=== PATIENT | male | born 1970 | race Caucasian/White ===

== ENCOUNTER 2019-06-15 13:27 | Inpatient (IN) | payer OTHER ==
[~2019-06-15] VITALS: Ht 175.3 cm; Wt 90.9 kg
--- NOTE | ~2019-06-15 | HEMODYNAMI ---
PATIENT:FRANCISCO PÉREZ MEDICAL RECORD: [id number] : 72 LOCATION:[facility] D.[address] [facility]# [id number] ADMISSION DATE: 06/15/19 Generatedon:06/16/201913:05 Patient name: FRANCISCO PÉREZ Patient #: [id number] : 1970 Date of study: 06/16/2019 Page: Of Hemodynamic Procedure Report Patient Data Patient Demographics Procedure consent was obtained First Name: FRANCISCO Gender: Male Last Name: BETO : 1970 Patient #: [id number] Age: 48 year(s) Race: SSN: [id number] Additional ID: [id number] Contact details Address: [address] [place] [address] [place] State: [facility] Zip code: [address] Admission Admission Data Admission Date: 06/15/2019 Admission Time: 14:34 Arrival Date: 06/15/2019 Arrival Time: 14:34 Admit Source: Other Insurance Payor: Private Room #: D.2125 health insurance [facility] #: [id number] Height (in.): 68.9 BSA: 2.11 (m2) Height (cm.): 175 BMI: 31.35 (kg/m2) Weight (lbs.): 211.64 Weight (kg.): 96 Lab Results Lab Result Date: 06/16/2019 Lab Result Time: 0:00 Biochemistry Name Units Result Min Max BUN mg/dl 14 --(--*-)-- 7 18 Creatinine mg/dl 1 --(--*-)-- 0.6 1.3 eGFR ml/min 85.46974 -*(----)-- 90 120 NONAFRICAN CBC Name Units Result Min Max Hemoglobin g/dl 14.1 --(*---)-- 13.5 17.5 Procedure Procedure Types Cath Procedure Diagnostic Procedure C LH w/Coronaries FFR/IVUS FFR Initial Sedation Charges Moderate Sedation up to 30 minutes PCI Procedure Coronary Stent Coronary Stent Initial Procedure Description Procedure Date Procedure Date: 06/16/2019 Procedure Start Time: 12:44 Procedure End Time: 12:59 Procedure Staff Name Function Robbie Thompson MD Performing Physician Renate Naik RT Monitor Umm Mercado RT Scrub Marley Whiting RN Nurse Procedure Data Cath Procedure Fluoroscopy Diagnostic fluoroscopy Total fluoroscopy Time: 2.8 time: 2.8 min min Diagnostic fluoroscopy Total fluoroscopy dose: 488 dose: 488 mGy mGy Contrast Material Contrast Material Type Amount (ml) Isovue 300 72 Entry Location Entry Primary Successful Side Size Upsize Upsize Entry Closure Leon ccessful Closure Location (Fr) 1 (Fr) 2 (Fr) Remarks Device Remarks Radial Right 6 Fr Mechanical artery Short Compression Estimated blood loss: 5 ml Diagnostic catheters Device Type Used For End Catheter Placement DIAGNOSTIC [place] 110cm 5 Multi-vessel Fr catheter ([id number]) Angiography Procedure Complications No complications Procedure Medications Medication Administration Route Dosage 0.9% NaCl I.V. 100 ml/hr Oxygen etCO2 Nasal cannula 2 l/min Lidocaine 2% added to field 20 Radial Cocktail added to field 1 syringe (Verapamil 2mg/Nitro 400mcg/Heparin 1500units) Heparin Flush Bag added to field 2 bags (1000units/500ml NS) Versed I.V. 2 mg Fentanyl I.V. 50 mcg Fentanyl I.V. 50 mcg Heparin Bolus I.V. 4000 units Hemodynamics Rest BSA: 2.11 (m2) HGB: 14.1 (g/dl) O2 Consumption: Estimated: 260.11 (ml/min) O2 Co nsumption indexed: Estimated:123.27 (ml/min/m) Heart Rate: 78 (bpm) Snapshots Pre Cath Intra NCS Post Cath Vital Signs Time Heart Resp SPO2 etCO2 NIBP (mmHg) Rhythm Pain Sedation Rate (ipm) (%) (mmHg) Status Level (bpm) 12:28:24 75 19 98 35 124/87(106) NSR 0 (11) 10(A) , No pain 12:32:36 77 16 97 32 122/80(96) NSR 0 (11) 10(A) , No pain 12:36:48 77 14 97 32.8 115/74(92) NSR 0 (11) 10(A) , No pain 12:41:00 75 13 96 35.1 113/69(92) NSR 0 (11) 10(A) , No pain 12:45:08 77 16 97 31.2 115/75(86) NSR 0 (11) 10(A) , No pain 12:49:18 76 15 97 31.2 111/72(93) NSR 0 (11) 10(A) , No pain 12:53:24 73 13 96 35.1 120/77(93) NSR 0 (11) 10(A) , No pain 12:57:34 73 15 96 32.8 128/81(101) NSR 0 (11) 10(A) , No pain Medications Time Medication Route Dose Verified Delivered Reason Not es Effectiveness by by 12:27:53 0.9% NaCl I.V. 100 Robbie Marley used for ml/hr Jay Whiting helper coordinator 12:27:59 Oxygen etCO2 2 l/min Robbie Marley used for Nasal Jay Whiting procedure cannula RN 12:28:05 Lidocaine 2% added 20ml Robbie Avalos for local to vial Jay Thompson MD anesthetic field 12:28:16 Radial Cocktail added 1 Robbie Avalos used for (Verapamil to syringe Jay Thompson MD procedure 2mg/Nitro field 400mcg/Heparin 1500units) 12:28:24 Heparin Flush added 2 bags Robbie Avalos used for Bag to Jay Thompson MD procedure (1000units/500ml field NS) 12:38:45 Versed I.V. 2 mg Robbie Marley for sedation Jay Whiting RN 12:38:54 Fentanyl I.V. 50 mcg Robbie Marley for sedation Jay Whiting RN 12:48:48 Fentanyl I.V. 50 mcg Robbie Marley for sedation Jay Whiting RN 12:53:36 Heparin Bolus I.V. 4000 Robbie Marley for anish ified units Jay Whiting anticoagulation with Dr. ALEXIA Thompson Procedure Log Time Note 12:07:09 Informed consent obtained and on chart 12:07:13 Diagnostic Cath Status : Elective 12:09:03 Admit Source: Other 12::07 Arrival Date: 06/15/2019 2:34:00 PM 12:09:22 Insurance Payor : Private health insurance 12:09:27 Patient Height : 68.9 inches 12:09:31 Patient Weight : 211.64 lbs 12::40 Lab Result : Creatinine 1 mg/dl 12::40 Lab Result : BUN 14 mg/dl 12::40 Lab Result : eGFR NONAFRICAN 85.49987 ml/min 12::40 Lab Result : Hemoglobin 14.1 g/dl 12::53 Umm Mercado RT(R) sent for patient. Start room use. 12::53 Time tracking: Regular hours (M-F 7:00 - 5:00) 12:10:57 Plan of Care:Hemodynamics will remain stable., Cardiac rhythm will remain stable., Comfort level will be maintained., Respiratory function will remain adequate., Patient/ family verbilizes understanding of procedure., Procedure tolerated without complication., Recovers from procedure without complications.. 12:11:02 Procedure Status Urgent Heart Cath (IP). 12:13:31 Risk of Mortality: 6.1 12:13:34 Risk of blood transfusion: 0.7 12:13:40 Risk of GLORIA: 6.7 12:13:53 2) 60-89 Mildly reduced kidney function, and other findings (as for stage 1) point to kidney disease. 12:14:11 Maximum allowable contrast dose (3.7 X eGFR X 0.75)235 ml. 12:14:18 Sedation plan: IV Moderate Sedation Medication:Versed, Fentanyl 12:19:17 Patient received from Med II to CCL 2 Alert and oriented. Tansferred to table in Supine position. 12:19:18 Warm blankets applied, and sasha hugger turned on for patient comfort. 12:19:19 Correct patient and procedure confirmed by team. 12:19:20 ECG and BP/O2 sat monitors applied to patient. 12:27:21 Vital chart was started 12::53 0.9% NaCl 100 ml/hr I.V. was administered by Marley Whiting RN; used for procedure; Verbal order read back and verified. 12:27:59 Oxygen 2 l/min etCO2 Nasal cannula was administered by Marley Whiting RN; used for procedure; Verbal order read back and verified. 12:28:05 Lidocaine 2% 20ml vial added to field was administered by Robbie Thompson MD; for local anesthetic; Verbal order read back and verified. 12:28:16 Radial Cocktail (Verapamil 2mg/Nitro 400mcg/Heparin 1500units) 1 syringe added to field was administered by Robbie Thompson MD; used for procedure; Verbal order read back and verified. 12:28:24 Heparin Flush Bag (1000units/500ml NS) 2 bags added to field was administered by Robbie Thompson MD; used for procedure; Verbal order read back and verified. 12:32:17 Baseline sample Acquired. 12:32:32 Baseline sample Acquired. 12:32:44 Rhythm: sinus rhythm 12:32:48 Full Disclosure recording started 12:34:42 H&P Date Dictated: 06/16/2019 New H&P dictated by physician.. 12:34:44 Pre-procedure instructions explained to patient. 12:34:45 Pre-op teaching completed and patient verbalized understanding. 12:34:47 Family in waiting room. 12:34:49 Patient NPO since Midnight. 12:34:52 Is the patient allergic to Iodine/contrast media? No. 12:34:56 Was the patient premedicated? Yes 12:34:59 ACC The patient was administered the following blood thiners within the last 24 hours: ACCPlavix 12:35:57 Patient diabetic? No. 12:36:04 Previous problem with sedation/anesthesia? No ? 12:36:11 Snore? No 12:36:12 Sleep apnea? No 12:36:14 Deviated septum? No 12:36:18 Opens mouth fully? Yes 12:36:23 Sticks out tongue? No 12:36:25 Airway obstruction? No ? 12:36:30 Dentures? No ? 12:36:35 Pre procedure: right dorsailis pedis pulse 2+ Normal; easily identifiable; not easily obliterated 12:36:37 Pre procedure: left dorsailis pedis pulse 2+ Normal; easily identifiable; not easily obliterated 12:36:39 Patient pain scale 0/10 ?. 12:36:44 IV patent on arrival in left forearm with 0.9% NaCl at [facility]. 12:36:52 Lab results completed and on chart. 12:36:59 Right Radial & Right Groin area was prepped with chlora-prep and draped in sterile fashion 12:37:00 Alarms reviewed by R. N. 12:37:00 Sharps counted by scrub and verified by R.N. 12:37:03 Physician arrived 12:37:04 --------ALL STOP TIME OUT------ 12:37:04 Final Timeout: patient, procedure, and site verified with staff and physician. All members of the team are in agreement. 12:37:08 Right Radial & Right Groin site verified by team. 12:37:12 Fire Safety Assessment: A--An alcohol-based skin anteseptic being used preoperatively., C--Open oxygen or nitrous oxide is being used., D--An ESU, laser, or fiber-optic light is being used. 12:38:45 Versed 2 mg I.V. was administered by Marley Whiting RN; for sedation; Verbal order read back and verified. 12:38:54 Fentanyl 50 mcg I.V. was administered by Marley Whiting RN; for sedation; Verbal order read back and verified. 12:39:11 Physical assessment completed. ASA score P 2 - A patient with mild systemic disease as per Robbie Thompson MD. 12:39:20 Use device set Radial Dx or PCI 12:39:21 ACIST Syringe (01816) opened to sterile field. 12:39:22 Medline Cath Pack ([id number]) opened to sterile field. 12:39:23 ACIST Hand Control (79005) opened to sterile field. 12:39:23 Bag Decanter () opened to sterile field. 12:39:24 ACIST Manifold (84515) opened to sterile field. 12:39:25 Tegaderm 4 x 4 (1626W) opened to sterile field. 12:39:26 MBrace Wrist Support ([id number]) opened to sterile field. 12:39:28 SHEATH 6FR RAIN (5701890) opened to sterile field. 12:39:29 EMERALD Guide Wire (964-055) opened to sterile field. 12:44:17 Procedure started. 12:44:21 Local anesthetic to right radial artery with Lidocaine 2% by Robbie Thompson MD.INITIAL ACCESS ONLY 12:44:28 A 6 Fr Short sheath was inserted into the Right Radial artery 12:44:40 A DIAGNOSTIC [place] 110cm 5 Fr catheter (216487) was advanced over the wire and used for Multi-vessel Angiography. 12:44:41 LV hemodynamics recorded. 12:44:42 LV gram done using VARELA 12:44:46 Injector settings: Ml/sec: 5, Volume: 15, 12:44:52 EF : 50 % 12:45:06 LCA angiography performed. 12:45:11 Injector settings: Ml/sec: 3, Volume: 6, 12:46:28 Catheter removed. 12:46:30 RCA angiography performed. 12:46:33 Injector settings: Ml/sec: 3, Volume: 6, 12:46:34 Catheter removed. 12:46:35 Proceeding to intervention. 12:46:51 [place] Verrata Plus pressure wire (91530O) opened to sterile field. 12:46:51 INFLATOR Merit BasixCompak (QM4892) opened to sterile field. 12:47:04 GUIDE 6FR AR 2.0 catheter ([id number]) opened to sterile field. 12:47:20 6 Fr ar 2 guide catheter was inserted over the wire 12:48:18 FFR/IFR wire advanced. 12:48:48 Fentanyl 50 mcg I.V. was administered by Marley Whiting RN; for sedation; Verbal order read back and verified. 12:51:07 verrata wire not functioning properly; new wire opened 12:51:23 [place] Verrata Plus pressure wire (23590G) opened to sterile field. 12:53:08 Baseline FFR 1. 12:53:14 mRCA lesion measured at 70 with IFR 12:53:27 Pre PCI Site: Habematolel mRCA has 70% stenosis. 12:53:36 Heparin Bolus 4000 units I.V. was administered by Marley Whiting RN; for anticoagulation; verified with Dr. Thompson Verbal order read back and verified. 12:53:44 ACC Pre-intervention ERIC Flow is 3. 12:54:28 Place stent Inflation Number: 1 A DANIEL RX 3.5 x 22 stent ([id number]) was prepped and advanced across the Prox RCA 70. The stent was deployed at 15 JUD for 0:10 (min:sec) 0. 12:55:42 ZEPHYR REGULAR TR BAND (770476) opened to sterile field. 12:56:03 ACC Post-intervention ERIC Flow is 3. 12:56:24 Post PCI Site: Habematolel mRCA has 0% stenosis. 12:56:31 Stent catheter was removed intact over wire. 12:56:33 Wire removed. 12:56:33 Guide catheter removed. 12:56:44 Sheath removed intact; hemostasis achieved with Mechanical Compression to the Right Radial artery. 12:56:49 Procedure ended.(Physican Out) 12:57:40 Fluoroscopy time 02.80 minutes. 12:57:45 Fluoroscopy dose: 488 mGy 12:57:45 Flurop Dose total: 488 12:57:54 Dose Area Product 78487 mGy/cm. 12:57:59 Contrast amount:Isovue 300 72ml. 12:58:01 Maximum allowable dose exceeded? No. 12:58:02 Sharps counted by scrub and verified by R.N. 12:58:12 [place] band inflated with 10cc of air. 12:58:27 Post right radial artery:stable 12:58:29 Post Procedure Pulses reassessed and unchanged 12:58:32 Post procedure rhythm: unchanged. 12:58:36 Estimated blood loss: 5 ml 12:58:38 Post procedure instruction explained to patient.Patient verbalizes understanding. 12:58:39 Patient needs reinforcement of post procedure teaching. 12:59:02 Procedure type changed to Cath procedure, Diagnostic procedure, LHC, C w/Coronaries, FFR/IVUS, FFR Initial, Sedation Charges, Moderate Sedation up to 30 minutes, PCI procedure, Coronary Stent, Coronary Stent Initial 12:59:04 Procedure and supply charges have been captured, reviewed, submitted and are correct. 12:59:05 Vital chart was stopped 12:59:12 Procedure Complication : No complications 12:59:20 [facility] Findings: MVD- PCI performed (see procedure note) 12:59:21 Operative report dictated upon procedure completion. 12:59:21 See physician's report for complete and final results. 12:59:24 Report given to CVICU. 12:59:29 Operative report dictated upon procedure completion. 12:59:41 Procedure ended. 12:59:41 Full Disclosure recording stopped 12:59:49 ACT drawn and resulted at 312 seconds. (normal therapeutic range 180-240 seconds). 12:59:55 ACC-PCI Only Patient was given prescriptions, or instructed by Robbie Thompson MD to start/continue the following medications upon discharge: Plavix 12:59:57 End room use (Document Last) Intervention Summary Intervention Notes Time ActionType Lesion and Equipment Used Action# Pressure Duration Attributes 12:54:28 Place stent Prox RCA DANIEL RX 3.5 x 1 15 00:10 22 stent ([id number]) Device Usage Item Name Manufacture Quantity Catalog Hospital Part Current Minimal Lot# / Number Charge Number Stock Stock Serial# Code ACIST Syringe Acist 1 39188 441685 117168 042825 20 (22590) Medical Systems Inc Medline Cath Medline 1 [id number] 438155 24440 151358 5 Pack ([id number]) ACIST Hand Acist 1 32761 431238 534736 875828 5 Control Medical (46560) Systems Inc Bag Decanter Microtek 1 2002S 902680 16161 343182 5 (2001S) Medical Inc. ACIST Manifold Acist 1 82828 947888 589148 618225 5 (63573) Medical Systems Inc Tegaderm 4 x 4 3M 1 1626W 285751 596597 262679 5 (1626W) MBrace Wrist Advanced 1 140-0250-00 272638 29463 502039 5 Support Vascular ([id number]) Dynamics SHEATH 6FR Cardinal 1 0241734 037018 0676770 206205 5 RAIN (5369074) [facility] EMERALD Guide Cardinal 1 502-455 313020 885936 178945 5 Wire (502-455) [facility] Aripe[place] 2 23514D 558488 121118934 312331 5 Verrata Plus pressure wire (68861H) INFLATOR Merit Merit 1 [id number] 893284 245209 984361 [facility] (KB3143[facility] GUIDE 6FR AR Medtronic 1 [id number] 502271 49731 436799 1 2.0 catheter ([id number]) DIAGNOSTIC Terumo 1 40-9035 123499 724803 223740 5 [place] 110cm 5 Fr catheter (409742) DANIEL RX 3.5 x Medtronic 1 [id number] 308866 9731781 744296 5 [id number] 22 stent ([id number]) ZEPHYR REGULAR Cardinal 1 229732 460548 0612499 503781 5 [place] (524545) Signature Audit [place] Stage Time Signature Unsigned Intra-Procedure 06/16/2019 Renate Naik 1:04:15 PM RT(R) Intra-Procedure 06/16/2019 Marley Whiting 1:04:50 PM RN Intra-Procedure 06/16/2019 Robbie Thompson 1:05:23 PM MD Signatures Performing Physician : Signature : Robbie Thompson MD Date : Time : Monitor : Renate Naik RT Signature : Date : Time : Nurse : Marley Whiting RN Signature : Date : Time : [facility] [address] [place], [place] [address] [address]
--- NOTE | ~2019-06-15 | HEMODYNAMI ---
PATIENT:FRANCISCO PÉREZ MEDICAL RECORD: [id number] : 72 LOCATION:[facility] D.2125 [facility]# [id number] ADMISSION DATE: 06/15/19 Generatedon:06/17/201913:30 Patient name: FRANCISCO PÉREZ Patient #: [id number] : 1970 Date of study: 06/17/2019 Page: Of Hemodynamic Procedure Report Patient Data Patient Demographics Procedure consent was obtained First Name: FRANCISCO Gender: Male Last Name: BETO : 1970 Patient #: [id number] Age: 48 year(s) Race: SSN: [id number] Additional ID: [id number] Contact details Address: [address] [place] [address] [place] State: [facility] Zip code: [address] Past Medical History Allergies: No known allergies Admission Admission Data Admission Date: 06/15/2019 Admission Time: 14:34 Arrival Date: 06/15/2019 Arrival Time: 14:34 Admit Source: Other Insurance Payor: Private Room #: D.2125 health insurance [facility] #: [id number] Height (in.): 68.9 BSA: 2.07 (m2) Height (cm.): 175 BMI: 29.71 (kg/m2) Weight (lbs.): 200.62 Weight (kg.): 91 Lab Results Lab Result Date: 06/16/2019 Lab Result Time: 0:00 Biochemistry Name Units Result Min Max BUN mg/dl 14 --(--*-)-- 7 18 Creatinine mg/dl 1 --(--*-)-- 0.6 1.3 eGFR ml/min 85.81758 -*(----)-- 90 120 NONAFRICAN CBC Name Units Result Min Max Hemoglobin g/dl 14.1 --(*---)-- 13.5 17.5 Procedure Procedure Types Cath Procedure Diagnostic Procedure Sedation Charges Moderate Sedation up to 15 minutes PCI Procedure Coronary Stent Coronary Stent Initial x2 Coronary Stent Additional Procedure Description Procedure Date Procedure Date: 06/17/2019 Procedure Start Time: 13:03 Procedure End Time: 13:29 Procedure Staff Name Function Robbie Thompson MD Performing Physician Sanjana Love RT Monitor Kandace Quiroga RT Scrub Henri Dickinson RT Scrub Agapito Antunez RN Nurse Jero Knapp RT French Edge Operator Procedure Data Cath Procedure Fluoroscopy Diagnostic fluoroscopy Total fluoroscopy Time: 6.2 time: 6.2 min min Diagnostic fluoroscopy Total fluoroscopy dose: 756 dose: 756 mGy mGy Contrast Material Contrast Material Type Amount (ml) Isovue 300 135 Entry Location Entry Primary Successful Side Size Upsize Upsize Entry Closure Succes sful Closure Location (Fr) 1 (Fr) 2 (Fr) Remarks Device Remarks Femoral Right 6 Fr Exoseal artery Short Estimated blood loss: 10 ml Procedure Complications No complications Procedure Medications Medication Administration Route Dosage Oxygen etCO2 Nasal cannula 2 l/min Lidocaine 2% added to field 20 Heparin Flush Bag added to field 2 bags (1000units/500ml NS) 0.9% NaCl I.V. 100 ml/hr Versed I.V. 2 mg Fentanyl I.V. 100 mcg Heparin Bolus I.V. 4000 units Versed I.V. 2 mg Fentanyl I.V. 50 mcg Versed I.V. 1 mg Fentanyl I.V. 50 mcg Hemodynamics Rest BSA: 2.07 (m2) HGB: 14.1 (g/dl) O2 Consumption: Estimated: 261.92 (ml/min) O2 Co nsumption indexed: Estimated:126.53 (ml/min/m) Heart Rate: 86 (bpm) Snapshots Pre Cath Intra NCS Post Cath Vital Signs Time Heart Resp SPO2 etCO2 NIBP (mmHg) Rhythm Pain Sedation Rate (ipm) (%) (mmHg) Status Level (bpm) 12:41:20 78 28 98 0 126/89(111) NSR 0 (11) 10(A) , No pain 12:45:26 88 22 97 24.1 116/86(101) NSR 0 (11) 10(A) , No pain 12:49:29 82 12 96 34.7 107/76(91) NSR 0 (11) 10(A) , No pain 12:53:33 80 11 96 36.9 109/76(93) NSR 0 (11) 10(A) , No pain 12:57:39 78 11 94 36.2 103/71(84) NSR 0 (11) 10(A) , No pain 13:01:44 79 12 94 36.9 109/70(93) NSR 0 (11) 10(A) , No pain 13:05:52 75 14 96 36.2 105/72(88) NSR 0 (11) 9(A) , No pain 13:09:58 74 10 95 39.2 112/74(89) NSR 0 (11) 9(A) , No pain 13:14:04 76 16 97 38.4 125/81(112) NSR 0 (11) 9(A) , No pain 13:18:10 74 17 97 37.7 124/90(104) NSR 0 (11) 9(A) , No pain 13:22:15 75 15 96 38.5 128/91(110) NSR 0 (11) 10(A) , No pain 13:26:23 85 8 96 34.7 135/96(118) NSR 0 (11) 10(A) , No pain Medications Time Medication Route Dose Verified Delivered Reason Notes Effectiveness by by 12:49:30 Oxygen etCO2 2 Robbie Buffie used for Nasal l/min Jay Antunez RN procedure cannula 12:49:37 Lidocaine 2% added 20ml Robbie Robbie for local to vial Jay Thompson MD anesthetic field 12:49:42 Heparin Flush added 2 Robbie Robbie used for Bag to bags Jay Thompson MD procedure (1000units/500ml field NS) 12:49:51 0.9% NaCl I.V. 100 Robbie Buffie Per physician ml/hr Jay Antunez RN 13:02:26 Versed I.V. 2 mg Robbie Buffie for sedation Jay Antunez RN 13:02:31 Fentanyl I.V. 100 Robbie Buffie for sedation mcg Jay Antunez RN 13:05:56 Heparin Bolus I.V. 4000 Robbie Buffie for units Jay Antunez RN anticoagulation 13:08:08 Versed I.V. 2 mg Robbie Buffie for sedation Jay Antunez RN 13:08:12 Fentanyl I.V. 50 Robbie Buffie for sedation mcg Jay Antunez RN 13:16:00 Versed I.V. 1 mg Robbie Altman for sedation Jay Antunez RN 13:16:11 Fentanyl I.V. 50 Robbie Altman for sedation mcg Jay Antunez focuser Log Time Note 12:19:32 Informed consent obtained and on chart 12:19:36 Patient Weight : 200.62 lbs 12:19:36 Patient Height : 68.9 inches 12:20:22 Procedure Status PCI. 12:20:26 Jero Knapp RT(R) sent for patient. Start room use. 12:20:28 Time tracking: Regular hours (M-F 7:00 - 5:00) 12:20:34 Plan of Care:Hemodynamics will remain stable., Cardiac rhythm will remain stable., Comfort level will be maintained., Respiratory function will remain adequate., Patient/ family verbilizes understanding of procedure., Procedure tolerated without complication., Recovers from procedure without complications.. 12:23:54 Patient allergic to No known allergies 12:28:15 Risk of Mortality: .6 12:28:18 Risk of blood transfusion: .1 12:28:21 Risk of GLORIA: .1 12:35:24 Patient received from Med II to CCL 1 Alert and oriented. Tansferred to table in Supine position. 12:35:25 Warm blankets applied, and sasha hugger turned on for patient comfort. 12:35:25 Correct patient and procedure confirmed by team. 12:35:27 ECG and BP/O2 sat monitors applied to patient. 12:40:20 Vital chart was started 12:40:21 Baseline sample Acquired. 12:40:26 Rhythm: sinus rhythm 12:41:37 Full Disclosure recording started 12:42:04 H&P Date Dictated: 06/17/2019 Within 30 days and on chart.. 12:42:07 Pre-procedure instructions explained to patient. 12:42:08 Pre-op teaching completed and patient verbalized understanding. 12:42:09 Family in patients room. 12:42:11 Patient NPO since Midnight. 12:42:12 Is the patient allergic to Iodine/contrast media? No. 12:42:15 Is patient on blood thinner?Yes 12:42:17 ACC The patient was administered the following blood thiners within the last 24 hours: ACCPlavix 12:42:49 Patient diabetic? No. 12:42:52 Previous problem with sedation/anesthesia? No ? 12:42:54 Snore? No 12:42:56 Sleep apnea? No 12:42:57 Deviated septum? No 12:42:58 Opens mouth fully? Yes 12:43:00 Sticks out tongue? Yes 12:43:05 Airway obstruction? No ? 12:43:07 Dentures? No ? 12:43:10 Pre procedure: right dorsailis pedis pulse 2+ Normal; easily identifiable; not easily obliterated 12:43:20 IV patent on arrival in right antecubital with 0.9% NaCl at [facility]. 12:43:29 Lab results completed and on chart. 12:43:39 Stress Test: no; N/A BRING BACK PCI 12:43:43 Right groin area was prepped with chlora-prep and draped in sterile fashion 12:43:44 Alarms reviewed by R. N. 12:43:44 Sharps counted by scrub and verified by R.N. 12:43:48 Use device set CATH PACK 12:43:50 ACIST Syringe (74294) opened to sterile field. 12:43:50 ACIST Hand Control (44644) opened to sterile field. 12:43:50 ACIST Manifold (29977) opened to sterile field. 12:43:51 Medline Cath Pack ([id number]) opened to sterile field. 12:43:51 Bag Decanter (2002S) opened to sterile field. 12:43:52 EMERALD Guide Wire (277-220) opened to sterile field. 12:44:12 SHEATH 6FR [place] (CPF592) opened to sterile field. 12:44:12 CHOICE PT Extra Support 182cm wire ([id number]) opened to sterile field. 12:44:12 CHOICE PT Extra Support 182cm wire ([id number]) opened to sterile field. 12:44:13 INFLATOR Merit BasixCompak (YB1851) opened to sterile field. 12:44:13 GUIDE 6FR XBLAD 3.5 catheter ([id number]) opened to sterile field. 12:44:48 Baseline sample Acquired. 12:49:30 Oxygen 2 l/min etCO2 Nasal cannula was administered by Agapito Antunez RN; used for procedure; Verbal order read back and verified. 12:49:37 Lidocaine 2% 20ml vial added to field was administered by Robbie Thompson MD; for local anesthetic; Verbal order read back and verified. 12:49:42 Heparin Flush Bag (1000units/500ml NS) 2 bags added to field was administered by Robbie Thompson MD; used for procedure; Verbal order read back and verified. 12:49:51 0.9% NaCl 100 ml/hr I.V. was administered by Agapito Antunez RN; Per physician; Verbal order read back and verified. 12:57:56 Zero performed for pressure channel P1 12:58:11 Zero performed for pressure channel P1 13:00:12 Zero performed for pressure channel P1 13:01:14 --------ALL STOP TIME OUT------ 13:01:15 Final Timeout: patient, procedure, and site verified with staff and physician. All members of the team are in agreement. 13:01:16 Right groin site verified by team. 13:01:19 Fire Safety Assessment: A--An alcohol-based skin anteseptic being used preoperatively., C--Open oxygen or nitrous oxide is being used., D--An ESU, laser, or fiber-optic light is being used. 13:01:24 Physical assessment completed. ASA score P 2 - A patient with mild systemic disease as per Robbie Thompson MD. 13:01:27 2) 60-89 Mildly reduced kidney function, and other findings (as for stage 1) point to kidney disease. 13:01:30 Maximum allowable contrast dose (3.7 X eGFR X 0.75)236 ml. 13:01:34 Sedation plan: IV Moderate Sedation Medication:Versed, Fentanyl 13:02:26 Versed 2 mg I.V. was administered by Agapito Antunez RN; for sedation; Verbal order read back and verified. 13:02:31 Fentanyl 100 mcg I.V. was administered by Agapito Antunez RN; for sedation; Verbal order read back and verified. 13:03:35 Procedure started. 13:03:46 Local anesthetic to right femoral artery with Lidocaine 2% by Robbie Thompson MD.INITIAL ACCESS ONLY 13:04:06 Zero performed for pressure channel P1 13:04:11 Zero performed for pressure channel P1 13:04:15 Zero performed for pressure channel P1 13:04:17 Zero performed for pressure channel P1 13:05:05 A 6 Fr Short sheath was inserted into the Right Femoral artery 13:05:11 6 Fr XBLAD 3.5 guide catheter was inserted over the wire 13:05:52 CHOICE ES #1 wire advanced. 13:05:56 Heparin Bolus 4000 units I.V. was administered by Agapito Antunez RN; for anticoagulation; Verbal order read back and verified. 13:06:05 1ST WIRE DOWN THE CX 13:06:11 CHOICE ES #2 wire advanced. 13:06:29 2ND WIRE TO THE OM 13:07:20 Pre PCI Site: [place] mCirc has 95% stenosis. 13:07:28 Pre PCI Site: [place] OM1 has 90% stenosis. 13:08:08 Versed 2 mg I.V. was administered by Agapito Antunez RN; for sedation; Verbal order read back and verified. 13:08:10 Place stent Inflation Number: 1 A DANIEL RX 2.5 x 15 stent ([id number]) was prepped and advanced across the 1st Ob Thalia . The stent was deployed at 13 JUD for 0:00 (min:sec) . 13:08:12 Fentanyl 50 mcg I.V. was administered by Agapito Antunez RN; for sedation; Verbal order read back and verified. 13:08:33 Stent catheter was removed intact over wire. 13:08:45 WIRE REMOVED FROM OM 13:09:54 Inflation number: 1 The stent balloon was then re-inflated across the Mid CX to 11 JUD for 0:00 (min:sec) . 13:10:03 Balloon removed over the wire. 13:11:44 Place stent Inflation Number: 2 A DANIEL RX 2.5 x 18 stent ([id number]) was prepped and advanced across the Mid CX . The stent was deployed at 17 JUD for 0:00 (min:sec) . 13:12:02 Stent catheter was removed intact over wire. 13:12:05 Wire redirected to OM. 13:14:43 Inflate balloon Inflation number: 2 A EUPHORA 2.5 x 15 Balloon ([id number]) was prepped and advanced across the 1st Ob Th[place] , then inflated to 13 JUD for 0:10 (min:sec) . 13:15:01 Balloon removed over the wire. 13:15:07 Wire redirected to DIAG. 13:15:52 Pre PCI Site: [place] Diag1 has 90% stenosis. 13:16:00 Versed 1 mg I.V. was administered by Agapito Antnuez RN; for sedation; Verbal order read back and verified. 13:16:11 Fentanyl 50 mcg I.V. was administered by Agapito Antunez RN; for sedation; Verbal order read back and verified. 13:18:38 Place stent Inflation Number: 1 A DANIEL RX 2.25 x 15 stent ([id number]) was prepped and advanced across the 1st Diag . The stent was deployed at 11 JUD for 0:00 (min:sec) . 13:19:10 Balloon removed over the wire. 13:19:12 Wire removed. 13:19:14 Guide catheter removed. 13:19:28 ACT drawn and resulted at 335 seconds. (normal therapeutic range 180-240 seconds). 13:20:05 EXOSEAL 6Fr (EX600) opened to sterile field. 13:21:13 Sheath removed intact; hemostasis achieved with Exoseal to the Right Femoral artery. 13:21:17 Procedure ended.(Physican Out) 13:21:38 Fluoroscopy time 06.20 minutes. 13:21:45 Dose Area Product 11805 mGy/cm. 13:21:49 Flurop Dose total: 756 13:21:49 Fluoroscopy dose: 756 mGy 13:21:55 Contrast amount:Isovue 300 135ml. 13:21:59 Maximum allowable dose exceeded? No. 13:22:00 Sharps counted by scrub and verified by R.N. 13:22:06 Post-op/insertion site Right Femoral artery dressed using a 4 x 4 and Tegaderm. 13:22:11 Post-procedure physical assessment completed. ASA score P 2 - A patient with mild systemic disease as per Robbie Thompson MD. 13:22:14 Post procedure rhythm: sinus rhythm 13:22:16 Estimated blood loss: 10 ml 13:22:17 Post procedure instruction explained to patient.Patient verbalizes understanding. 13:22:18 Patient needs reinforcement of post procedure teaching. 13:23:08 Procedure type changed to Cath procedure, Diagnostic procedure, Sedation Charges, Moderate Sedation up to 15 minutes, PCI procedure, Coronary Stent, Coronary Stent Initial x2, Coronary Stent Additional 13:23:36 Procedure and supply charges have been captured, reviewed, submitted and are correct. 13:23:40 Procedure Complication : No complications 13:25:15 [facility] Findings: MVD- PCI performed (see procedure note) 13:25:17 Operative report dictated upon procedure completion. 13:25:18 See physician's report for complete and final results. 13:28:52 Vital chart was stopped 13:28:55 Report given to [facility]. 13:28:59 Patient transfered to [facility] with Bed. 13:29:02 Procedure ended. 13:29:02 Full Disclosure recording stopped 13:29:08 ACC-PCI Only Patient was given prescriptions, or instructed by Robbie Thompson MD to start/continue the following medications upon discharge: Plavix 13:29:38 End room use (Document Last) 13:30:03 End room use (Document Last) Intervention Summary Intervention Notes Time ActionType Lesion and Equipment Used Action# Pressure Duration Attributes 13:08:10 Place stent 1st Ob Thalia DANIEL RX 2.5 x 1 13 00:00 15 stent ([id number]) 13:09:54 Reinflate Mid CX DANIEL RX 2.5 x 1 11 00:00 stent 15 stent balloon ([id number]) 13:11:44 Place stent Mid CX DANIEL RX 2.5 x 2 17 00:00 18 stent ([id number]) 13:14:43 Inflate 1st Ob Thalia EUPHORA 2.5 x 2 13 00:10 balloon 15 Balloon ([id number]) 13:18:38 Place stent 1st Diag DANIEL RX 2.25 x 1 11 00:00 15 stent ([id number]) Device Usage Item Name Manufacture Quantity Catalog Number Hospital Part Current M inimal Lot# / Charge Number Stock Stock Serial# Code ACIST Syringe Acist 1 62091 110315 354990 966485 2 0 (71986) Medical Systems Inc ACIST Hand Acist 1 60782 136848 650703 152584 5 Control Medical (81890) Systems Inc ACIST Manifold Acist 1 55800 084941 839597 510740 5 (18430) Medical Systems Inc Medline Cath Medline 1 [id number] 611630 38295 716477 5 Pack ([id number]) Bag Decanter Microtek 1 380031 44198 335932 5 () Medical Inc. EMERALD Guide Cardinal 1 615-032 262712 330851 973997 5 Wire (107-141) Health SHEATH 6FR Terumo 1 TOO832 762537 001551 829325 4 0 [place] (LTC219) CHOICE PT [place] 2 [id number] 565593 979056 725163 5 Extra Support Scientific 182cm wire ([id number]) INFLATOR Merit Merit 1 MR0634 162446 532840 969518 1 5 [facility] (CL[facility] GUIDE 6FR Cardinal 1 60733306 283448 301276 280775 1 0 XBLAD 3.5 Health catheter (64266243) DANIEL RX 2.5 x Medtronic 1 [id number] 410282 6491994 844877 5 [id number] 15 stent ([id number]) DANIEL RX 2.5 x Medtronic 1 [id number] 216020 2015520 460318 5 [id number] 18 stent ([id number]) EUPHORA 2.5 x Medtronic 1 [id number] 173719 343802 814525 5 [id number] 15 Balloon ([id number]) DANIEL RX 2.25 x Medtronic 1 [id number] 248627 3280964 992276 5 [id number] 15 stent ([id number]) EXOSEAL 6Fr Cardinal 1 EX600 646351 571225 174500 1 0 (EX600) Health Signature Audit [place] Stage Time Signature Unsigned Intra-Procedure 06/17/2019 Sanjana Love 1:30:03 PM RT(R) Intra-Procedure 06/17/2019 Agapito Antunez RN 1:30:27 PM Intra-Procedure 06/17/2019 Robbie Thompson 1:30:44 PM [facility] [address] [place] [address]
[2019-06-15 14:30] LABS: CALC OSMOLALITY 283 mosm/kg (275-300); CALCIUM 8.6 mg/dL (8.5-10.1); CARBON DIOXIDE 28.5 mmol/L (21.0-32.0); CHLORIDE - SERUM 106 mmol/L (98-107); GLUCOSE 95 mg/dL (74-106); POTASSIUM - SERUM 4.1 mmol/L (3.5-5.1); SODIUM 142 mmol/L (136-145); UREA NITROGEN 14 mg/dL (7-18); eGFR NON AFRICAN AMERICAN 85 mL/min (90-120)
[2019-06-15 14:36] LABS: INR 1.12 (0.85-1.17); PROTIME 13.9 SECONDS (11.6-15.0)
[2019-06-15 14:41] LABS: BASOPHILS 0.2 % (0-2); EOSINOPHILS 0.7 % (0-7); HEMATOCRIT 42.8 % (42.0-54.0); HEMOGLOBIN 14.1 g/dL (13.5-17.5); IMMATURE GRANULOCYTES 0.1 % (0-5); MCH 32.3 pg (26.0-34.0); MCHC 32.9 g/dL (31.0-37.0); MCV 98.2 fL (80.0-100.0); MEAN PLATELET VOLUME 10.1 fL (7.4-10.4); MONOCYTES 7.7 % (2-11); NEUTROPHILS 60.3 % (40-80); PLATELET COUNT 199 10x3/uL (130-400); RBC 4.36 10x6/uL (4.20-6.10); RDW 12.8 % (11.5-14.5); WBC 9.1 10x3/uL (4.8-10.8)
[2019-06-15 14:52] LABS: ALBUMIN 3.6 g/dL (3.4-5.0); ALKALINE PHOSPHATASE 114 U/L (46-116); ALT (SGPT) 51 U/L (10-68); BILIRUBIN - TOTAL 0.44 mg/dL (0.2-1.3); CKMB 252.8 U/L (0.0-3.6); MAGNESIUM - SERUM 2.2 mg/dL (1.8-2.4); PROTEIN - SERUM 7.5 g/dL (6.4-8.2)
[2019-06-15 14:58] LABS: CREATINE KINASE 2465 UL (21-232)
[2019-06-15 14:59] LABS: TROPONIN-I 37.181 ng/mL (0.000-0.060)
[2019-06-15 15:06] LABS: CHOL - HDL RATIO 4.3 ratio (2.3-4.9); LDL-HDL RATIO 2.9 ratio (1.5-3.5)
--- NOTE | 2019-06-15 15:35 | MORECARE ---
CASE MANAGEMENT DISCHARGE SUMMARY PATIENT: FRANCISCO PÉREZ UNIT: [id number] ADM DATE: 06/15/19 AGE: 48 : 72 SEX: M ROOM/BED: D.2083 AUTHOR: SUSAN,DOC PHYSICIAN: REFERRING PHYSICIAN: DHAVAL CRUMP M.D. DATE OF SERVICE: 06/15/19 Discharge Plan Patient Name: FRANCISCO PÉREZ Facility: [facility]:[place] : 1970 Planned Disposition: Home Anticipated Discharge Date: 06/17/19 Discharge Date: Expected LOS: 2 Initial Reviewer: [email or web address] Initial Review Date: 06/15/2019 Generated: 06/15/19 4:35 pm DCP- Discharge Planning Updated by [email or web address]: Jael Merrill on 06/15/19 2:[address] DC PLAN: Return home with independently. ANTICIPATED DC NEEDS: Denied known dc needs. CM met with patient and his to complete initial dc planning assessment. CM educated patient on the CM role and verbal consent given by patient to complete assessment. CM verified patient's address, phone number, and emergency contact phone numbers. Patient lives at home with his and stated he is independent in his care at home. At discharge patient plans to return home and feels this is a safe discharge. CM discussed availability of home health, rehab services, and medical equipment. Patient denied known discharge needs at this time. Transportation provider at discharge will be his . CM will continue to follow and will assist as needed with dc plans/needs. Jael Merrill RN, [facility] DCPIA - Discharge Planning Initial Assessment Updated by [email or web address]: Jael Merrill on 06/15/19 3:29 pm * Is the patient Alert and Oriented? Yes * PCP Dr. Blayne Rodriguez * Pharmacy [facility] * Preadmission Environment Home with Family * ADLs Independent * Equipment None * List name and contact numbers for known caregivers / representatives who currently or will assist patient after discharge: Carlita Rae - - [phone] Lela tse - [phone] * Verbal permission to speak to the caregivers and representatives has been obtained from the patient. Yes * Community resources currently utilized None * Additional services required to return to the preadmission environment? No * Can the patient safely return to the preadmission environment? Yes * Has this patient been hospitalized within the prior 30 days at any hospital? No Patient Name: FRANCISCO PÉREZ Page [id number] at 1535 All edits/amendments must be made on the electronic document DICTATION DATE: 06/15/191533 CUSTOMS INVESTIGATOR: NATIVIDAD 06/15/191533 RPT#: [id number] DC DATE: STATUS: ADM IN [facility] [address] [place] [address] END OF REPORT
[2019-06-15 15:36] VITALS: BP 137/93
[2019-06-15] MEDS ORDERED: CENTRUM MEN'S1 EACH PO (16:59)
[2019-06-15 18:26] VITALS: Ht 175.3 cm; Wt 90.9 kg
--- NOTE | 2019-06-15 18:37 | NUR ---
ASSESSMENT COMPLETE AAOX4 RESP UNLABORED CHEST PAIN 5/10 WILL CONTINUE TO MONITOR
--- NOTE | 2019-06-15 19:24 | NUR ---
ASSESSMENT COMPLETE, PT A&O. RESPERATIONS EVEN ON RA. IV TO RIGHT AC WITH HEPARIN DRIP INFUSING AT 10 CC/HR. IV SITE CLEAN AND DRY. SANDWHICH TRAY AND COLA GIVEN, REMINDED PT NOTHING TO EAT OR DRINK AFTER MN, PT STATED UNDERSTANDING. PT DENIES PAIN OR NEEDS, BED LOW, CL IN REACH.
[2019-06-15 19:39] LABS: CKMB 316.4 U/L (0.0-3.6); CREATINE KINASE 3386 UL (21-232); TROPONIN-I 59.114 ng/mL (0.000-0.060)
[2019-06-15 20:00] VITALS: BP 126/87
[2019-06-16] VITALS: BP 117/82
[2019-06-16 00:12] LABS: CREATINE KINASE 2860 UL (21-232); TROPONIN-I 70.362 ng/mL (0.000-0.060)
--- NOTE | 2019-06-16 00:36 | NUR ---
RESTING WITH EYES CLOSED, RESPERATIONS EVEN, NO S/S DISTRESS NOTED.
[2019-06-16 04:25] VITALS: BP 120/70
--- NOTE | 2019-06-16 07:33 | NUR ---
REPORT RECEIVED. WILL CONTINUE WITH POC. PT CURRENTLY LYING SEMI FOWLERS. CALL LIGHT W/I REACH. PT IS AAO AND UP AD CHAD. PT IS NPO FOR HEART CATH THIS AM. NO S/S OF DISTRESS NOTED. PT DENIES ANY NEEDS AT THIS TIME. WILL CTM.
[2019-06-16 08:00] VITALS: BP 122/82
--- NOTE | 2019-06-16 10:34 | NUR ---
PREOP MEDICATIONS ADMINISTERED PER WEAVER WIRE LOOM REQUEST. NS INFUSING @KVO VIA R.AC PIV. WILL CTM.
[2019-06-16 12:00] VITALS: BP 134/73
--- NOTE | 2019-06-16 13:31 | NUR ---
PT RETURNED FROM EGG PACKER. RIGHT WRIST IS C/D/I WITH NO S/S OF HEMATOMA PRESENT. PT DENIES ANY NEEDS. NO S/S OF DISTRESS NOTED. WILL CTM. NS INFUSING @100ML/HR VIA L.AC PIV.
[2019-06-16 16:00] VITALS: BP 114/79
--- NOTE | 2019-06-16 17:42 | NUR ---
I have reviewed this patient and I concur with the Shift Assessment completed by the Licensed Practical Nurse today this shift.
--- NOTE | 2019-06-16 19:16 | NUR ---
EVENING ROUNDS COMPLETE. PT SITTING UP ON SIDE OF BED, AAOX4. NO SIGNS OF DISTRESS. PT DENIES ANY PAIN OR NEEDS AT THIS TIME. CL IN REACH, BED IN LOWEST POSITION.
[2019-06-16 20:00] VITALS: BP 112/69
--- NOTE | 2019-06-16 23:10 | NUR ---
HEPARIN DRIP D/C PER DR VILLAR AT THIS TIME.
[2019-06-17] VITALS: BP 101/62
[2019-06-17 04:00] VITALS: BP 104/68
--- NOTE | 2019-06-17 07:41 | NUR ---
AM MEDS GIVEN AT THIS TIME, WITH A SIP OF WATER. PT DENIES ANY PAIN AT THIS TIME. PT A/O X4, RESP EVEN AND NONLABORED ON RA. RT WRIST DRESSING CDI, NO S/S OF HEMATOMA. PT DENIES ANY NEEDS AT THIS TIME. CALL LIGHT IN REACH, NAD NOTED, WILL CONTINUE TO MONITOR.
[2019-06-17 08:45] VITALS: BP 119/76
--- NOTE | 2019-06-17 10:41 | OP ---
PATIENT NAME: FRANCISCO PÉREZ MEDICAL RECORD: [id number] :72 LOCATION:D.M2 D.2125 ADMISSION DATE:06/15/19 SURGEON: DOMINGO VILLAR MD DATE OF OPERATION: 06/16/2019 PROCEDURES: 1. PTCA stent RCA. 2. IFR. 3. Left heart catheterization. 4. Selective coronary angiography. 5. Left ventriculogram. INDICATION: Non-Q-wave myocardial infarction. PROCEDURE IN DETAIL: After informed consent was obtained and after a detailed description of the risks, benefits as well as alternative therapies, the patient elected to proceed with angiogram and angioplasty. The right radial area was prepped and draped in normal sterile fashion. Right radial artery was cannulated via modified Seldinger technique with placement of 6-Armenian sheath. All catheters exchanged through this sheath. FINDINGS: Left ventriculogram was performed in standard 30-degree VARELA view, reveals global hypokinesis, ejection fraction in the 40% range. SELECTIVE CORONARY ANGIOGRAPHY: 1. Left main is with no significant angiographic disease. 2. Left anterior descending has 90% stenosis in the diagonal, questionable 70% stenosis in the mid LAD that will be better delineated by IFR. 3. Left circumflex has 95% stenosis. 4. Right coronary artery is a very large dominant vessel, 70% stenosis proximal and IFR was abnormal at 0.88. PTCA STENT OF THE RCA: The stent used was a 3.5 x 22 mm [place] taken to 21 atmospheres. Result was 0% residual stenosis. OVERALL IMPRESSION: Successful percutaneous transluminal coronary angioplasty stent of the right coronary artery going from 70% initial stenosis to 0% residual. PLAN: PTCA stent of the LAD diagonal and left circumflex in the near future. TRANSINT:[id number] Voice Confirmation ID: [id number] DOCUMENT ID: [id number] DOMINGO VILLAR MD at 1041 CC: [id number] DICTATION DATE: 06/16/19 1259 COAT EXAMINER: 06/16/19 1311 [place] [address]
--- NOTE | 2019-06-17 10:41 | EC ---
PATIENT:FRANCISCO PÉREZ DATE OF SERVICE: 06/15/19 SEX: M MEDICAL RECORD: [id number] DATE OF : 72 LOCATION:D.M2 D.212 AGE OF PATIENT: 48 ADMISSION DATE: 06/15/19 REFERRING PHYSICIAN: INTERPRETING PHYSICIAN: DOMINGO THOMPSON MD ECHOCARDIOGRAM REPORT ECHO CHARGES 4 ECHO COMPLETE Date: 06/16/19 CLINICAL DIAGNOSIS: OH ECHOCARDIOGRAPHIC MEASUREMENTS (adult normal given) AC root (d.<3.7cm) 3.4 cm LV Septum d (<1.2 cm> 0.6 cm Valve Excursion 1.4 cm LV Septum (systole) 1.0 cm Left Atria (s.<4.0cm> 3.1 cm LVPW d(<1.2cm) 0.8 cm RV (d.<2.3cm) 2.5 cm LVPW (sytole) 1.4 cm LV diastole(<5.6CM) 6.0 cm MV E-F(>70mm/sec) cm LV systole 4.6 cm LVOT Diameter 1.9 cm MV exc.(>10mm) cm Est.ejection fraction (50-75%) % DOPPLER: LVIT cm/sec A 50.0 cm/sec E 56.0 cm/sec LA cm/sec RVSP 23.1 mmHg LVOT 78 cm/sec AOP1/2T m/s Asc. Ao 117 cm/sec RVOT 56 cm/sec RA cm/sec PA 69 cm/sec AV Gradient Peak 5.5 mmHg AV Mean 3.0 mmHg AV Area 2.1 cm MV Gradient Peak 2.3 mmHg MV Mean 1.3 mmHg MV Area cm COMMENTS: Knife Edger: Alissa SULLIVAN Sailing Officer: 1 Dr. Thompson TAPE# PACS Pericardial Effusion N DATE OF SERVICE: FINDINGS: 1. Left ventricular chamber size is mildly dilated. Left ventricular systolic function is normal at 50%. 2. Left atrium is within normal limits. Right atrium and right ventricular chamber sizes are mildly dilated. 3. Valvular structures have normal structure and motion. 4. Doppler interrogation reveals no significant valvular insufficiency or stenosis. Pulmonary systolic pressure is estimated at 23 mmHg. ECHOCARDIOGRAM REPORT [id number] FRANCISCO PÉREZ 5. No evidence of pericardial effusion or left ventricular thrombus. TRANSINT:[id number] Voice Confirmation ID: [id number] DOCUMENT ID: [id number] DOMINGO THOMPSON MD at 1041 CC: [id number] DICTATION DATE: 06/16/19 120 CHEMICAL TESTER: 06/16/19 1208 ADM IN [facility] [address] [id number]
--- NOTE | 2019-06-17 10:41 | CN ---
PATIENT NAME:FRANCISCO VERA MEDICAL RECORD: [id number] : 72 LOCATION:[facility] D.2125 ADMIT DATE: 06/15/19 ACCOUNT: [id number] CONSULTING PHYSICIAN: DOMINGO VILLAR MD REFERRING PHYSICIAN: DHAVAL CRUMP M.D. DATE OF CONSULTATION: 06/15/2019 DIAGNOSES: 1. Non-Q-wave myocardial infarction. 2. Coronary artery disease. HISTORY OF PRESENT ILLNESS: Mr. Vera has no previous cardiac history, no previous medical problems, no family history of coronary artery disease, developed severe chest pain this morning. His troponin is positive for myocardial infarction. He received nitro as well as morphine in the ER. He is currently pain free. His EKG is with no acute ST-T abnormalities. PHYSICAL EXAMINATION: CONSTITUTIONAL/GENERAL APPEARANCE: Well nourished, well developed, appears stated age. EYES: Lids and conjunctivae noninjected. No discharge. No pallor. ENT: Lips within normal limit. No cyanosis. No pallor. NECK: Carotid arteries, bilateral normal upstroke. No bruits. No thrills. No jugular venous pressure or distention. CERVICAL LYMPH NODES: Nontender. Nonenlarged. THYROID: Not enlarged. No nodules. CARDIOVASCULAR: Precordial exam, nondisplaced. No heaves or pericardial thrills. Rate and rhythm, regular. Heart sounds, normal S1, normal S2. No S3, no gallop, no rub. Systolic murmur, not heard. Diastolic murmur, not heard. RESPIRATORY: Respiratory effort, unlabored. Normal curvature. No thoracic deformity. No chest wall tenderness. Percussion, resonant. Auscultation, clear. No wheezes, no rales, no rhonchi. ABDOMEN: Soft, nondistended, nontender. No abdominal pain, no vomiting and normal appetite. MUSCULOSKELETAL: No joint tenderness, normal gait, normal tone. SKIN: Warm and dry. OVERALL IMPRESSION: Non-Q-wave myocardial infarction, troponin of 13. At this time, we will proceed with coronary angiography in the a.m. Further care depends upon findings of the angiography. TRANSINT:[id number] Voice Confirmation ID: [id number] DOCUMENT ID: [id number] DOMINGO VILLAR MD at 1041 CC: [id number] DICTATION DATE: 06/15/19 165 MECHANIC: 06/15/19 193 ADM IN [place] [id number] [place] [id number]
--- NOTE | 2019-06-17 12:35 | NUR ---
PRE-OP MEDS GIVEN, PT TO PORTFOLIO LEAD, VIA BED, NAD NOTED.
--- NOTE | 2019-06-17 13:49 | NUR ---
RECEIVED PT BACK TO ROOM 2124, PT DROWSY BUT EASILY AROUSES TO VOICE. VITAL SIGNS STABLE, PLACE PT ON FREQUENT VITAL SIGNS. RT GROIN DRESSING CDI, CALL LIGHT IN REACH NAD.WILL CONTINUE TO MONITOR.
[2019-06-17 17:44] VITALS: BP 114/83
[2019-06-17 20:00] VITALS: BP 111/70
[2019-06-18] VITALS: BP 105/67
--- NOTE | 2019-06-18 02:03 | NUR ---
I have reviewed this patient and I concur with the Shift Assessment completed by the Licensed Practical Nurse today this shift.
[2019-06-18 04:30] VITALS: BP 104/68
--- NOTE | 2019-06-18 07:10 | NUR ---
REPORT RECEVIED FROM INVESTMENT ANALYST AND PATIENT CARE ASSUMED. PATIENT LAYING IN BED ON BACK AWAKE, ALERT AND ORIENTED X 4. PATIENT IS STABLE AND VSS PATIENT DENIES ANY NEEDS OR PAIN. WILL CONTINUE WITH PLAN OF CARE. SR UP X 2 BED IN LOW POSITION AND CALL LIGHT IN REACH.
[2019-06-18] MEDS ORDERED: PRAVACHOL40 MG PO (08:16)
[2019-06-18] MEDS ORDERED: TOPROL XL25 MG PO (08:16)
[2019-06-18] MEDS ORDERED: PLAVIX75 MG (08:17)
[2019-06-18] MEDS ORDERED: BAYER CHEWABLE81 MG PO (08:18)
--- NOTE | 2019-06-18 08:39 | NUR ---
UPON ADMIT, PATIENT HAS NOT HAD A FLU SHOT, OREDERED.
--- NOTE | 2019-06-18 09:01 | MORECARE ---
CASE MANAGEMENT DISCHARGE SUMMARY PATIENT: FRANCISCO PÉREZ UNIT: [id number] ADM DATE: 06/15/19 AGE: 48 : 72 SEX: M ROOM/BED: D.9665 AUTHOR: SUSAN,DOC PHYSICIAN: REFERRING PHYSICIAN: DHAVAL CRUMP M.D. DATE OF SERVICE: 06/18/19 Discharge Plan Patient Name: FRANCISCO PÉREZ Facility: [facility]:[place] : 1970 Planned Disposition: Home Anticipated Discharge Date: 06/18/19 Discharge Date: Expected LOS: 3 Initial Reviewer: [email or web address] Initial Review Date: 06/15/2019 Generated: 06/18/19 10:01 am DCP- Discharge Planning Updated by [email or web address]: Jael Merrill on 06/15/19 2:[address] DC PLAN: Return home with independently. ANTICIPATED DC NEEDS: Denied known dc needs. CM met with patient and his to complete initial dc planning assessment. CM educated patient on the CM role and verbal consent given by patient to complete assessment. CM verified patient's address, phone number, and emergency contact phone numbers. Patient lives at home with his and stated he is independent in his care at home. At discharge patient plans to return home and feels this is a safe discharge. CM discussed availability of home health, rehab services, and medical equipment. Patient denied known discharge needs at this time. Transportation provider at discharge will be his . CM will continue to follow and will assist as needed with dc plans/needs. Jael Merrill RN, [facility] DCPIA - Discharge Planning Initial Assessment Updated by [email or web address]: Jael Merrill on 06/15/19 3:29 pm * Is the patient Alert and Oriented? Yes * PCP Dr. Blayne Rodriguez * Pharmacy [facility] * Preadmission Environment Home with Family * ADLs Independent * Equipment None * List name and contact numbers for known caregivers / representatives who currently or will assist patient after discharge: Carlita Rae - - [phone] Lela tse - [phone] * Verbal permission to speak to the caregivers and representatives has been obtained from the patient. Yes * Community resources currently utilized None * Additional services required to return to the preadmission environment? No * Can the patient safely return to the preadmission environment? Yes * Has this patient been hospitalized within the prior 30 days at any hospital? No Last DP export: 06/15/19 2:35 Patient Name: FRANCISCO PÉREZ Page [id number] at 0901 All edits/amendments must be made on the electronic document DICTATION DATE: 06/18/19900 SUPERVISOR CONCRETE STONE FINISHING: [place] 06/18/19900 RPT#: [id number] DC DATE: STATUS: ADM IN [facility] [address] [place] [address] END OF REPORT
[2019-06-18 09:08] VITALS: BP 112/71
--- NOTE | 2019-06-18 09:38 | NUR ---
PATIENT IS STABLE AND VSS. PATIENT DENIES ANY NEEDS OR PAIN. ORDERS RECEIEVED FOR DC. WRITTEN AND VERBAL INSTRUCTIONS GIVEN TO PATIENT AND . BOTH VERBALIZED UNDERSTANDING AND PATIENT SIGNED PAPERWORK. IVS TO BEN ARMS DC WITHOUT DIFFICULTY AND WITH ENTIRE CATHETERS INTACT. PATIENT TO FRONT DOOR VIA WC TO PRIVATE VIEHICLE DRIVEN BY . PATIENT IS DCD HOME FOR SELF CARE.
--- NOTE | 2019-06-22 09:28 | OP ---
PATIENT NAME: FRANCISCO PÉREZ MEDICAL RECORD: [id number] :72 LOCATION:D.M2 D.2125 ADMISSION DATE:06/15/19 SURGEON: DOMINGO VILLAR MD DATE OF OPERATION: 06/17/2019 PROCEDURES: 1. PTCA and stent of left circumflex. 2. PTCA and stent first obtuse marginal. 3. PTCA and stent of LAD diagonal. 4. Selective coronary angiography. INDICATION: Myocardial infarction. DESCRIPTION OF PROCEDURE: After informed consent was obtained and after a detailed explanation of the risks, benefits as well as alternative therapies, the patient elected to proceed with angiogram and angioplasty. The right femoral area was prepped and draped in normal sterile fashion. Right femoral artery was cannulated via modified Seldinger technique with placement of 6-[place]eg[place] sheath. All catheters exchanged through this sheath. FINDINGS: The left circumflex had 90% to 95% stenosis with the obtuse marginal 90% stenosis. The obtuse marginal addressed with a 2.5 x 18-mm Samuel stent. The circumflex itself with a 2.5 x 22-mm [place] stent. Result was 0% residual stenosis. PTCA AND STENT OF THE LAD DIAGONAL: This was 90+ percent stenosis, addressed with a 2.25 x 15-mm Samuel. Result was 0% residual stenosis. OVERALL IMPRESSION: Successful PTCA and stent of LAD diagonal, left circumflex, and first obtuse marginal, all going from 90% to 95% initial stenosis to 0% residual. TRANSINT:[id number] Voice Confirmation ID: [id number] DOCUMENT ID: [id number] DOMINGO VILLAR MD at 0928 CC: [id number] DICTATION DATE: 06/17/19 1646 GROUND OPERATIONS CREW MEMBER: 06/18/19 0524 DIS IN 06/18/19 [facility] [address] [place] [id number]
--- NOTE | 2019-06-22 09:28 | DS ---
PATIENT:FRANCISCO VERA :72 MEDICAL RECORD: [id number] DISCHARGE SUMMARY ADMISSION DATE: 06/15/19 DISCHARGE DATE: 06/18/19 DIAGNOSES: 1. Non-Q-wave myocardial infarction. 2. Coronary artery disease. 3. Percutaneous transluminal coronary angioplasty stent right coronary artery, LAD, and left circumflex this admission. HOSPITAL COURSE: Mr. Vera presents with a non-Q-wave myocardial infarction, found to have severe 3-vessel coronary artery disease, underwent successful PTCA stent of all territories, had no further anginal symptomatology, no dysrhythmias, no heart failure, discharged home with the addition of aspirin, Plavix, Pravachol, and Lopressor to his medical regimen. Follow up with [facility] in 1 month. TRANSINT:[id number] Voice Confirmation ID: [id number] DOCUMENT ID: [id number] DOMINGO VILLAR MD at 0928 CC: [id number] DICTATION DATE: 06/18/19 08 MOBILE THERAPIST: 06/18/19 0836 DIS IN 06/18/19 [place] [id number] [place] [address]
== END 2019-06-18 10:00 | disposition home or self-care (01) | DRG 246 ==
LOC: D.ER 13:27 → D.M2 14:34
PROVIDERS: Emergency Medicine; Internal Medicine Interventional Cardiology; ADMIT Internal Medicine Cardiovascular Disease; ATTEND Internal Medicine Cardiovascular Disease
PROC: 4A033BC Measurement of Arterial Pressure, Coronary, Percutaneous Approach (ICD-10-PCS; 2019-06-16)
PROC: 4A023N7 Measurement of Cardiac Sampling and Pressure, Left Heart, Percutaneous Approach (ICD-10-PCS; 2019-06-16)
PROC: B2111ZZ Fluoroscopy of Multiple Coronary Arteries using Low Osmolar Contrast (ICD-10-PCS; 2019-06-16)
PROC: B2151ZZ Fluoroscopy of Left Heart using Low Osmolar Contrast (ICD-10-PCS; 2019-06-16)
PROC: 027034Z Dilation of Coronary Artery, One Artery with Drug-eluting Intraluminal Device, Percutaneous Approach (ICD-10-PCS; principal; 2019-06-16 13:00)
PROC: 027136Z Dilation of Coronary Artery, Two Arteries with Three Drug-eluting Intraluminal Devices, Percutaneous Approach (ICD-10-PCS; 2019-06-17)
DX: I21.4 Non-ST elevation (NSTEMI) myocardial infarction (principal); I25.10 Atherosclerotic heart disease of native coronary artery without angina pectoris